=== PATIENT | female | born 1970 | race Caucasian/White ===

== ENCOUNTER → 2019-10-05 | Outpatient (CLI) | payer OTHER ==
[~2019-10-05] MED LIST: OMNIPAQUE 350 MG/ML, 100ML BOTTLE ONE
== END | disposition home or self-care (01) ==
LOC: CFH 13:59
PROVIDERS: ATTEND Nurse Practitioner Family
DX: C81.77 Other Hodgkin lymphoma, spleen (principal); E07.9 Disorder of thyroid, unspecified; E04.9 Nontoxic goiter, unspecified; E07.89 Other specified disorders of thyroid
CPT/HCPCS: 70491; Q9967